=== PATIENT | male | born 1965 | race Hispanic/Latino ===

== ENCOUNTER 2017-03-16 02:24 | Inpatient (IN) | payer MEDICAID, OTHER ==
[2017-03-16 04:57] LABS: Calcium 9.9 mg/dL (8.4-10.2); Chloride 96.6 mmol/L (98-107)
[2017-03-16 05:00] LABS: Hematocrit 33.1 % (35.5-45.6); Hemoglobin 10.7 gm/dl (11.8-15.2); Mean Corpuscular HGB Conc 32 % (32-34); Mean Corpuscular Hemoglobin 34 pg (28-32); Mean Corpuscular Volume 105 fl (84-94); Platelet Count 762 K/mm3 (140-440); Red Blood Count 3.15 M/mm3 (3.65-5.03); Red Cell Distribution Width 15.4 % (13.2-15.2); White Blood Count 13.5 K/mm3 (4.5-11.0)
[2017-03-16 05:01] LABS: Potassium 5.1 mmol/L (3.6-5.0)
[2017-03-16 06:57] LABS: Basophils % (Manual) 0 % (0.0-1.8); Blastocytes % (Manual) 0 %
[2017-03-16 06:59] LABS: Diff Status Complete; Platelet Estimate Appears Increased; RBC Morphology Normal
--- NOTE | 2017-03-16 08:05 | Emergency Department Report ---
ED Psych HPI - General Chief Complaint: Psych Stated Complaint: MARISSA HUNT Time Seen by Provider: 03/16/17 07:47 Source: patient Mode of arrival: Ambulatory Limitations: No Limitations - History of Present Illness Initial Comments: 51-year-old male presents to the emergency department complaining of bugs in his ears. Patient states for the past 2 weeks he has been having constant buzzing in his right ear and static in his left ear. He reports hearing constant music, but states it is the same songs over and over again. Patient states he has been unable to sleep at night due to the sounds in his ears. He also reports hearing voices stating that they are going to "get him". He denies suicidal or homicidal thoughts. There are no other complaints. -: Gradual, week(s) (2) Associated Psychiatric Symptoms: auditory hallucinations, delusions History of same: No Quality: constant Improves With: none Worsens With: none Associated Symptoms: denies other symptoms Treatments Prior to Arrival: none - Related Data Home Medications Medication Instructions Recorded Confirmed Last Taken No Known Home Medications [No 03/16/17 03/16/17 Unknown Reported Home Medications] Allergies Allergy/AdvReac Type Severity Reaction Status Date / Time No Known Allergies Allergy Unverified 03/16/17 03:52 ED Review of Systems ROS: Stated complaint: MARISSA EVAL Other details as noted in HPI Comment: All other systems reviewed and negative Psychiatric: auditory hallucinations. denies: visual hallucinations, homicidal thoughts, suicidal thoughts ED Past Medical Hx - Past Medical History Previous Medical History?: Yes Additional medical history: pancreatitis - Surgical History Past Surgical History?: No - Family History Family history: no significant - Social History Smoking Status: Current Every Day Smoker Substance Use Type: Alcohol - Medications Home Medications: Home Medications Medication Instructions Recorded Confirmed Last Taken Type No Known Home Medications [No 03/16/17 03/16/17 Unknown History Reported Home Medications] ED Physical Exam - General Limitations: No Limitations General appearance: alert, in no apparent distress - Head Head exam: Present: atraumatic, normocephalic - Eye Eye exam: Present: normal appearance, PERRL, EOMI - ENT ENT exam: Present: normal exam, normal orophraynx, mucous membranes moist, TM's normal bilaterally - Neck Neck exam: Present: normal inspection, full ROM. Absent: tenderness - Respiratory Respiratory exam: Present: normal lung sounds bilaterally. Absent: respiratory distress - Cardiovascular Cardiovascular Exam: Present: regular rate, normal rhythm, normal heart sounds - GI/Abdominal GI/Abdominal exam: Present: soft, normal bowel sounds. Absent: distended, tenderness - Extremities Exam Extremities exam: Present: normal inspection, full ROM. Absent: tenderness - Back Exam Back exam: Present: normal inspection, full ROM. Absent: tenderness - Neurological Exam Neurological exam: Present: alert, oriented X3. Absent: motor sensory deficit - Psychiatric Psychiatric exam: Present: anxious, manic. Absent: homicidal ideation, suicidal ideation - Skin Skin exam: Present: warm, dry, intact ED Course Vital Signs 03/16/17 03/16/17 03:52 09:12 Temperature 98.3 F 98.5 F Pulse Rate 104 H 98 H Respiratory 20 16 Rate Blood Pressure 133/87 116/76 [Left] O2 Sat by Pulse 100 100 Oximetry - Reevaluation(s) Reevaluation #1: 03/16/17 11:59 Patient has been medically cleared. Form 1013 has been signed and placed in patient's chart. Patient is waiting mental [facility] placement ED Medical Decision Making - Lab Data Result diagrams: 03/16/17 04:05 03/16/17 04:05 - Radiology Data Radiology results: report reviewed, image reviewed CT of the head shows no acute intracranial abnormality. - Differential Diagnosis psychosis, intracranial lesion Critical care attestation.: If time is entered above; I have spent that time in minutes in the direct care of this critically ill patient, excluding procedure time. ED Disposition Clinical Impression: Psychosis Qualifiers: Psychosis type: unspecified psychosis type Qualified Code(s): F29 - Unspecified psychosis not due to a substance or known physiological condition Disposition: DC/TX PSY HOSP/PSY UNIT Is pt being admited?: No Condition: Stable Time of Disposition: 12:00
[2017-03-16 08:13] LABS: Urine Drugs of Abuse Note Disclamer
[2017-03-16 08:27] LABS: Bacteria,Urine 1+ /HPF (Negative); Bilirubin,Urine NEG (Negative); Blood,Urine NEG (Negative); Ketones,Urine TR mg/dL (Negative); Leukocyte Esterase,Urine TR (Negative); Mucus,Urine FEW /HPF; Nitrite,Urine NEG (Negative); Protein,Urine <15 mg/dL mg/dL (Negative); RBC,Urine < 1.0 /HPF (0.0-6.0); Urobilinogen,Urine < 2.0 mg/dL (<2.0)
--- NOTE | 2017-03-16 08:34 | Cat Scan Report ---
CT HEAD WITHOUT CONTRAST: HISTORY: New onset hallucinations, psychosis. Serial contiguous axial images were obtained through the cranium. Intravenous contrast material was not administered. The ventricles are normal in size and appearance. There is no mass effect or midline shift. No areas of abnormally increased or decreased attenuation are seen. No mass lesion is seen. The mastoid air cells and visualized portions of the sinuses are normal. IMPRESSION: Cranial CT scan within normal limits.
--- NOTE | 2017-03-16 15:36 | Consultation ---
History of Present Illness - Reason for Consult Consult date: 03/16/17 Reason for consult: Mental Health Evaluation Requesting physician: CATALINO JACOME - Chief Complaint Chief complaint: "There are bugs in my ear" - History of Present Psychiatric Illness 51-year-old white male presents to the emergency department complaining of bugs in his ears. Today patient is elated and calm with a non linear thought process. He reports bugs in both his ears, also hearing music playing intermittently. He states that a "molly" is turning up the volume in his ears currently. He stated that the bugs and the loud music prevents him from sleeping. He stated he got 1 hours of sleep last night. Patient was able to tell me that his father called the police on him at their home prior to his admission to [facility]. Patient states that they got into a argument about the bugs in his ear. Patient resides with his parents in [place], [place]. He denies symptoms of depression or a poor appetite. He denies any psy hx, SI/HI's, and VH's. Patient is a poor historian of past psy hx. Medications and Allergies Allergies Allergy/AdvReac Type Severity Reaction Status Date / Time No Known Allergies Allergy Unverified 03/16/17 03:52 Home Medications Medication Instructions Recorded Confirmed Last Taken Type No Known Home Medications [No 03/16/17 03/16/17 Unknown History Reported Home Medications] Past psychiatric history - Past Medical History Past Medical History: No medical history Past Surgical History: No surgical history - past Psychiatric treatment and history psychiatric treatment history: He denies any psy hx. He denies a fam psy hx. - Social History Social history: lives with family ([employer] graduate, unemployed) Mental Status Exam - Vital signs Last Vital Signs Temp 98.5 F 03/16/17 09:12 Pulse 98 H 03/16/17 09:12 Resp 16 03/16/17 09:12 BP 116/76 03/16/17 09:12 Pulse Ox 100 03/16/17 09:12 - Exam Narrative exam: ROS (+) psychosis, (+) delusional, (-) depression MSE: Appearance: Disheveled, cooperative Behavior: good eye contact Speech: regular rate and tone Mood: "I am fine" Affect: euphoric Thought Process: focus, fixed, non linear Thought Content: denies SI/HI's, +AH, -VH Cognition: A/O x3 Insight: poor Judgment: poor Results Result Diagrams: 03/16/17 04:05 03/16/17 04:05 Abnormal lab results 03/16/17 03/16/17 Range/Units 04:05 04:05 WBC 13.5 H (4.5-11.0) K/mm3 RBC 3.15 L (3.65-5.03) M/mm3 Hgb 10.7 L (11.8-15.2) gm/dl Hct 33.1 L (35.5-45.6) % MCV 105 H (84-94) fl MCH 34 H (28-32) pg RDW 15.4 H (13.2-15.2) % Plt Count 762 H (140-440) K/mm3 Seg Neuts % (Manual) 84.0 H (40.0-70.0) % Lymphocytes % (Manual) 5.0 L (13.4-35.0) % Monocytes % (Manual) 8.0 H (0.0-7.3) % Seg Neutrophils # Man 11.3 H (1.8-7.7) K/mm3 Lymphocytes # (Manual) 0.7 L (1.2-5.4) K/mm3 Monocytes # (Manual) 1.1 H (0.0-0.8) K/mm3 Sodium 134 L (137-145) mmol/L Potassium 5.1 H (3.6-5.0) mmol/L Chloride 96.6 L (98-107) mmol/L Carbon Dioxide 17 L (22-30) mmol/L BUN 24 H (9-20) mg/dL Creatinine 1.6 H (0.8-1.5) mg/dL All other labs normal. Assessment and Plan Assessment and plan: Impression: Psychosis NOS. 51-year-old white male presents to the emergency department complaining of bugs in his ears. Today patient is elated and calm with a non linear thought process. He reports bugs in both his ears, also hearing music playing intermittently. He states that a "molly" is turning up the volume in his ears currently. He stated that the bugs and the loud music prevents him from sleeping. He denies SI/HI's and VH's at this time. Recommendation/Plan: Continue 1013 with possible placement in a inpatient psy services. Start Zyprexa 5 mg PO HS for psychosis and benadryl 25 mg PO HS for sleep. Gather more collateral from parents.
--- NOTE | 2017-03-16 17:43 | Event Note ---
Date: 03/16/17 Discussed metabolic side effects with patient reference Zyprexa.
[2017-03-16] MEDS: BENADRYL PO SCH (22:27)
--- NOTE | 2017-03-17 09:56 | Progress Note ---
Subjective - Reason for Consult Consult date: 03/17/17 Reason for consult: Psychiatry Follow-up - Chief Complaint Chief complaint: "It's the static today" 51-year-old white male presents to the emergency department complaining of bugs in his ears. Today patient calm, cooperative with a non linear thought process. He reports the bugs are gone, it's just the "static" in my ears now. Patient stated, the "molly" must have turned off the music. He could not tell me who this "molly" is. Patient stated that he got much more sleep last night. He feels that the "static" in his ears may go away soon. He states this is all new to him. He denies SI/HI's and VH's. I observed patient eating a snack during our discussion. Mental Status Exam - Vital signs Last Vital Signs Temp 98.5 F 03/16/17 09:12 Pulse 88 03/17/17 08:16 Resp 18 03/17/17 08:16 BP 120/72 03/17/17 08:16 Pulse Ox 100 03/17/17 08:16 - Exam Narrative exam: MSE: Appearance: calm, cooperative Behavior: good eye contact Speech: regular rate and tone Mood: "I am good" Affect: euphoric Thought Process: focus, fixed, non linear Thought Content: denies SI/HI's, +AH, -VH Cognition: A/O x3 Insight: poor Judgment: poor Assessment and Plan mpression: Psychosis NOS. 51-year-old white male presents to the emergency department complaining of bugs in his ears. Today patient calm, cooperative with a non linear thought process. He reports the bugs are gone, it's just the "static" in my ears now. Patient stated, the "molly" must have turned off the music. He could not tell me who this "molly" is. Patient stated that he got much more sleep last night. He feels that the "static" in his ears may go away soon. He denies SI/HI's and VH's at this time. Recommendation/Plan: Continue 1013 with possible placement in a inpatient psy services. Continue Zyprexa 5 mg PO HS for psychosis and benadryl 25 mg PO HS for sleep. Gather more collateral information from parents. I asked his assigned RN to get me his parent's number if possible.
[2017-03-17] MEDS ORDERED: MORPHINE IV ONE (13:03)
[2017-03-17] MEDS ORDERED: ZOFRAN IV ONE (13:03)
--- NOTE | 2017-03-17 13:05 | Emergency Department Report ---
Blank Doc - Documentation Documentation: Informed by nursing the patient is complaining of abdominal pain. Abdomen: Patient is tender to palpation diffusely but greatest in the epigastric region. Normoactive bowel sounds. Will add LFTs, amylase and lipase and order a CT abdomen and pelvis with IV contrast further evaluate abdominal pain. Analgesia ordered 14:43 CT abdomen and pelvis (read by radiologist) (-findings suggestive of acute pancreatitis. Please correlate with the patient's clinical presentation. Duodenitis or peptic ulcer disease could also be considered. Bilateral nephrolithiasis, nonobstructing. The patient's amylase came back elevated at 2550 and lipase elevated at 1844. Will admit the patient to the hospital for acute pancreatitis. 14:[address] Che lazaro
[2017-03-17 14:01] LABS: Alanine Aminotransferase 12 units/L (7-56); Albumin 3.5 g/dL (3.9-5); Albumin/Globulin Ratio 0.8 %; Alkaline Phosphatase 190 units/L (35-129); Bilirubin,Total 0.2 mg/dL (0.1-1.2); Total Protein 7.8 g/dL (6.3-8.2)
[2017-03-17 14:08] LABS: Bilirubin,Direct < 0.2 mg/dL (0-0.2)
[2017-03-17 14:10] LABS: Amylase 2550 units/L (27-131)
--- NOTE | 2017-03-17 14:32 | Cat Scan Report ---
CT SCAN OF THE ABDOMEN AND PELVIS WITH CONTRAST: HISTORY: Epigastric abdominal pain. TECHNIQUE: Helical CT in 1.25mm intervals following IV contrast. Sagittal and coronal reconstructions. FINDINGS: Moderate inflammatory fat stranding and small fluid is identified within the base of the mesentery. This may arise from an inflamed pancreas. The pancreatic head appears mildly edematous with prominent ducts. There is a calcified lesion within or adjacent to the pancreatic tail measuring 2.7 cm. This may represent thrombosed and calcified splenic artery aneurysm The liver, spleen, and biliary system are unremarkable. No calcified gallstones are identified on CT. Bilateral nonobstructing renal stones are identified. No evidence for ureteral stones or hydronephrosis. The adrenal glands are normal. There is no intestinal obstruction or ascites. The appendix is not confidently identified. The abdominal aorta is normal. There is no evidence for bowel obstruction no oral contrast was administered. There may be mild thickening of the duodenum could be reactive or related to duodenitis. There is no evidence of peritoneal air. There is no evidence of any abnormal masses or fluid collections within the pelvis. No bulky adenopathy is identified. Borderline reactive lymph nodes are noted in the mesentery. The bladder is normal. IMPRESSION: Findings suggestive of acute pancreatitis. Please correlate with the patient's clinical presentation. Duodenitis or peptic ulcer disease could also be considered. Bilateral nephrolithiasis, nonobstructing.
[2017-03-17] MEDS ORDERED: NACL 0.9% 1000 ML 1,000 ML IV ONE (14:39)
[2017-03-17] MEDS ORDERED: SUBLIMAZE IV PRN (14:40)
[2017-03-17 14:42] LABS: Lipase 1844 units/L (13-60)
--- NOTE | 2017-03-17 15:14 | Admit Criteria Form ---
Admission Criteria Documentation: PANCREATITIS Clinical Indications for Admission to Inpatient Care (Place 'X' for any and all applicable criteria): Admission is indicated for 1 or more of the following (1)(2)(3)(4): [X ]I. Acute pancreatitis[A] as indicated by 2 or MORE of the following: [X ]a) Abdominal pain (eg, epigastric, left upper quadrant) [X ]b) Serum amylase or serum lipase greater than 3 times the upper limit of normal [X]c) Characteristic findings from abdominal imaging (eg, pancreatic inflammation, pancreatic necrosis, peripancreatic fluid collection)[B] [ ]II. Pancreatitis (acute or chronic ) requiring inpatient care as indicated by 1 or more of the following [ ]a) Inability to maintain oral hydration Hypoxemia [ ]b) Evidence of infection (eg, fever, peripancreatic abscess) [ ]c) Severe pain requiring acute inpatient management [ ]d) Hemodynamic instability [ ]e) Hypoxemia [ ]f) Acute renal failure [ ]g) Severe electrolyte abnormalities Extended stay beyond goal length of stay may be needed for (1)(11) [ ]a) Severe acute pancreatitis (10)(19) [ ]b) Persistent symptoms, ascites, or pleural effusion [ ]c) Abdominal compartment syndrome (10) [ ]d) Late complications [ ]e) Gallstones in gallbladder [ ]f) Acute renal failure (27) The original [employer] content created by [employer] has been revised. The portions of the content which have been revised are identified through the use of italic text or in bold,and [facility] has neither reviewed nor approved the modified material.All other unmodified content is copyright [employer]. Please see references footnoted in the original [employer] edition 2016 Admission Criteria Met: Yes
[2017-03-17] MEDS ORDERED: TYLENOL PO PRN (18:52)
[2017-03-17] MEDS ORDERED: MILK OF MAGNESIA PO PRN (18:52)
[2017-03-17] MEDS ORDERED: DULCOLAX PR PRN (18:52)
--- NOTE | 2017-03-17 19:07 | Event Note ---
Date: 03/17/17 See H/p in reports Acute pancreatitis Psychosis
[2017-03-17] MEDS: DILAUDID IV PRN ×2 (19:57→23:04)
[2017-03-17] MEDS: D5NS 1,000 ML IV SCH ×2 (20:02→20:09)
[2017-03-17] MEDS: BENADRYL PO SCH (21:54)
[2017-03-17] MEDS: PEPCID PO SCH (21:54)
--- NOTE | 2017-03-18 02:00 | History and Physical Report ---
History of Present Illness Date of examination: 03/17/17 Date of admission: 03/17/17 14:45 Chief complaint: Acute Abd pain while in ER History of present illness: 52 y/o male was being evaluated for psychosis .Was feeling a bug and static in his ear. per psych eval- (51-year-old white male presents to the emergency department complaining of bugs in his ears. Today patient calm, cooperative with a non linear thought process. He reports the bugs are gone, it's just the "static" in my ears now. Patient stated, the "molly" must have turned off the music. He could not tell me who this "molly" is. Patient stated that he got much more sleep last night. He feels that the "static" in his ears may go away soon. He states this is all new to him. He denies SI/HI's and VH's. I observed patient eating a snack during our discussion.) While in Er b/c of abd pain w/u was initiated and was found to have Acute pncreatitis -hence admission to hospital.Pain 10 /10 and very sharp pain.Localized to Epigastric region.No exacerbating or relieving factors. Past History Past Medical History: No medical history, other (Psychosis) Past Surgical History: No surgical history Social history: lives with family ( graduate, unemployed), smoking Family history: no significant family history Medications and Allergies Allergies Allergy/AdvReac Type Severity Reaction Status Date / Time No Known Allergies Allergy Verified 03/16/17 17:44 Home Medications Medication Instructions Recorded Confirmed Last Taken Type No Known Home Medications [No 03/16/17 03/16/17 Unknown History Reported Home Medications] Active Meds: Active Medications Acetaminophen (Tylenol) 650 mg PO Q4H PRN PRN Reason: Pain MILD(1-3)/Fever >100.5/JERNIGAN Bisacodyl (Dulcolax) 10 mg HI QDAY PRN PRN Reason: Constipation unrelieved by MOM Diphenhydramine HCl (Benadryl) 25 mg PO [facility] Last Admin: 03/17/17 21:54 Dose: 25 mg Famotidine (Pepcid) 20 mg PO BID [facility] Last Admin: 03/17/17 21:54 Dose: 20 mg Fentanyl (Sublimaze) 100 mcg IV ONCE PRN PRN Reason: Pain Hydromorphone HCl (Dilaudid) 1 mg IV Q3H PRN PRN Reason: Pain , Severe (7-10) Last Admin: 03/17/17 23:04 Dose: 1 mg Dextrose/Sodium Chloride (D5ns) 1,000 mls @ 100 mls/hr IV DIRECT [facility] Last Admin: 03/17/17 20:09 Dose: 100 mls/hr Magnesium Hydroxide (Milk Of Magnesia) 30 ml PO Q4H PRN PRN Reason: Constipation Olanzapine (Zyprexa) 5 mg PO HS [facility] Last Admin: 03/17/17 21:54 Dose: 5 mg Ondansetron HCl (Zofran) 4 mg IV Q3H PRN PRN Reason: N/V unrelieved by Reglan Review of Systems All systems: negative Constitutional: no weight loss, no weight gain, no fever, no chills, no sweats, no night sweats Ears, nose, mouth and throat: tinnitis, no hoarseness, no sore throat Cardiovascular: no chest pain, no orthopnea, no palpitations, no rapid/ irregular heart beat, no edema, no syncope, no lightheadedness, no shortness of breath Respiratory: no cough, no cough with sputum, no excessive sputum, no hemoptysis , no shortness of breath, no dyspnea on exertion Gastrointestinal: abdominal pain, nausea Genitourinary Male: no dysuria, no hematuria, no flank pain, no discharge, no urinary frequency, no urinary hesitancy, no nocturia, no incontinence Rectal: no bleeding Musculoskeletal: no neck stiffness, no neck pain Integumentary: no rash, no pruritis, no redness, no sores, no wounds, no jaundice, no boils, no blisters Neurological: no seizures, no syncope Psychiatric: anxiety, depression Endocrine: no cold intolerance, no heat intolerance, no polyphagia, no excessive thirst, no polydipsia, no polyuria, no nocturia, no excessive sweating , no flushing Hematologic/Lymphatic: no easy bruising, no easy bleeding, no lymphadenopathy, no lymphedema Allergic/Immunologic: no urticaria, no allergic rhinitis, no wheezing Exam - Constitutional Vitals: Temp Pulse Resp BP Pulse Ox 98.1 F 85 20 144/87 100 03/17/17 22:41 03/17/17 22:41 03/17/17 23:04 03/17/17 22:41 03/17/17 19:00 General appearance: Present: no acute distress, well-nourished - EENT Eyes: Present: PERRL ENT: hearing intact, clear oral mucosa - Neck Neck: Present: supple, normal ROM - Respiratory Respiratory effort: normal Respiratory: bilateral: CTA - Cardiovascular Rhythm: regular Heart Sounds: Present: S1 & S2. Absent: rub, click - Extremities Extremities: no ischemia, pulses intact, pulses symmetrical, No edema Peripheral Pulses: within normal limits - Abdominal General gastrointestinal: Present: tender (Guarding present), non-distended, normal bowel sounds Male genitourinary: Present: normal - Integumentary Integumentary: Present: clear, warm, dry - Musculoskeletal Musculoskeletal: gait normal, strength equal bilaterally - Psychiatric Psychiatric: appropriate mood/affect, intact judgment & insight - Neurologic Neurologic: CNII-XII intact, moves all extremities Results - Labs CBC & Chem 7: 03/16/17 04:05 03/16/17 04:05 Labs: Amylase 2550 Lipase 1844 Laboratory Last Values WBC 13.5 K/mm3 (4.5-11.0) H 03/16/17 04:05 RBC 3.15 M/mm3 (3.65-5.03) L 03/16/17 04:05 Hgb 10.7 gm/dl (11.8-15.2) L 03/16/17 04:05 Hct 33.1 % (35.5-45.6) L 03/16/17 04:05 MCV 105 fl (84-94) H 03/16/17 04:05 MCH 34 pg (28-32) H 03/16/17 04:05 MCHC 32 % (32-34) 03/16/17 04:05 RDW 15.4 % (13.2-15.2) H 03/16/17 04:05 Plt Count 762 K/mm3 (140-440) H 03/16/17 04:05 Lymph % (Auto) Department Secretary 03/16/17 04:05 [place] % (Auto) Department Secretary 03/16/17 04:05 Eos % (Auto) Department Secretary 03/16/17 04:05 Baso % (Auto) Department Secretary 03/16/17 04:05 Lymph # Department Secretary 03/16/17 04:05 [place] # Department Secretary 03/16/17 04:05 Eos # Department Secretary 03/16/17 04:05 Baso # Department Secretary 03/16/17 04:05 Add Manual Diff Complete 03/16/17 04:05 Total Counted 100 03/16/17 04:05 Seg Neutrophils % Department Secretary 03/16/17 04:05 Seg Neuts % (Manual) 84.0 % (40.0-70.0) H 03/16/17 04:05 Band Neutrophils % 0 % 03/16/17 04:05 Lymphocytes % (Manual) 5.0 % (13.4-35.0) L 03/16/17 04:05 Reactive Lymphs % (Man) 0 % 03/16/17 04:05 Monocytes % (Manual) 8.0 % (0.0-7.3) H 03/16/17 04:05 Eosinophils % (Manual) 3.0 % (0.0-4.3) 03/16/17 04:05 Basophils % (Manual) 0 % (0.0-1.8) 03/16/17 04:05 Metamyelocytes % 0 % 03/16/17 04:05 Myelocytes % 0 % 03/16/17 04:05 Promyelocytes % 0 % 03/16/17 04:05 Blast Cells % 0 % 03/16/17 04:05 Nucleated RBC % Not Reportable 03/16/17 04:05 Seg Neutrophils # Department Secretary 03/16/17 04:05 Seg Neutrophils # Man 11.3 K/mm3 (1.8-7.7) H 03/16/17 04:05 Band Neutrophils # 0.0 K/mm3 03/16/17 04:05 Lymphocytes # (Manual) 0.7 K/mm3 (1.2-5.4) L 03/16/17 04:05 Abs React Lymphs (Man) 0.0 K/mm3 03/16/17 04:05 Monocytes # (Manual) 1.1 K/mm3 (0.0-0.8) H 03/16/17 04:05 Eosinophils # (Manual) 0.4 K/mm3 (0.0-0.4) 03/16/17 04:05 Basophils # (Manual) 0.0 K/mm3 (0.0-0.1) 03/16/17 04:05 Metamyelocytes # 0.0 K/mm3 03/16/17 04:05 Myelocytes # 0.0 K/mm3 03/16/17 04:05 Promyelocytes # 0.0 K/mm3 03/16/17 04:05 Blast Cells # 0.0 K/mm3 03/16/17 04:05 WBC Morphology Not Reportable 03/16/17 04:05 Hypersegmented Neuts Not Reportable 03/16/17 04:05 Hyposegmented Neuts Not Reportable 03/16/17 04:05 Hypogranular Neuts Not Reportable 03/16/17 04:05 Smudge Cells Not Reportable 03/16/17 04:05 Toxic Granulation Not Reportable 03/16/17 04:05 Toxic Vacuolation Not Reportable 03/16/17 04:05 Dohle Bodies Not Reportable 03/16/17 04:05 Pelger-Huet Anomaly Not Reportable 03/16/17 04:05 Kev Rods Not Reportable 03/16/17 04:05 Platelet Estimate Appears increased 03/16/17 04:05 Clumped Platelets Not Reportable 03/16/17 04:05 Plt Clumps, EDTA Not Reportable 03/16/17 04:05 Large Platelets Not Reportable 03/16/17 04:05 Giant Platelets Not Reportable 03/16/17 04:05 Platelet Satelliting Not Reportable 03/16/17 04:05 Plt Morphology Comment Not Reportable 03/16/17 04:05 RBC Morphology Normal 03/16/17 04:05 Dimorphic RBCs Not Reportable 03/16/17 04:05 Polychromasia Not Reportable 03/16/17 04:05 Hypochromasia Not Reportable 03/16/17 04:05 Poikilocytosis Not Reportable 03/16/17 04:05 Anisocytosis Not Reportable 03/16/17 04:05 Microcytosis Not Reportable 03/16/17 04:05 Macrocytosis Not Reportable 03/16/17 04:05 Spherocytes Not Reportable 03/16/17 04:05 Pappenheimer Bodies Not Reportable 03/16/17 04:05 Sickle Cells Not Reportable 03/16/17 04:05 Target Cells Not Reportable 03/16/17 04:05 Tear Drop Cells Not Reportable 03/16/17 04:05 Ovalocytes Not Reportable 03/16/17 04:05 Helmet Cells Not Reportable 03/16/17 04:05 [place] Bodies Not Reportable 03/16/17 04:05 [place] Rings Not Reportable 03/16/17 04:05 [place] Cells Not Reportable 03/16/17 04:05 Bite Cells Not Reportable 03/16/17 04:05 Crenated Cell Not Reportable 03/16/17 04:05 Elliptocytes Not Reportable 03/16/17 04:05 Acanthocytes (Spur) Not Reportable 03/16/17 04:05 Rouleaux Not Reportable 03/16/17 04:05 Hemoglobin C Crystals Not Reportable 03/16/17 04:05 Schistocytes Not Reportable 03/16/17 04:05 Malaria parasites Not Reportable 03/16/17 04:05 [place] Bodies Not Reportable 03/16/17 04:05 Hem Pathologist Commnt No 03/16/17 04:05 Sodium 134 mmol/L (137-145) L 03/16/17 04:05 Potassium 5.1 mmol/L (3.6-5.0) H 03/16/17 04:05 Chloride 96.6 mmol/L (98-107) L 03/16/17 04:05 Carbon Dioxide 17 mmol/L (22-30) L 03/16/17 04:05 Anion Gap 26 mmol/L 03/16/17 04:05 BUN 24 mg/dL (9-20) H 03/16/17 04:05 Creatinine 1.6 mg/dL (0.8-1.5) H 03/16/17 04:05 Estimated GFR 46 ml/min 03/16/17 04:05 BUN/Creatinine Ratio 15.00 % 03/16/17 04:05 Glucose 92 mg/dL (75-100) 03/16/17 04:05 Calcium 9.9 mg/dL (8.4-10.2) 03/16/17 04:05 Total Bilirubin 0.2 mg/dL (0.1-1.2) 03/17/17 13:02 Direct Bilirubin < 0.2 mg/dL (0-0.2) 03/17/17 13:02 AST 29 units/L (5-40) 03/17/17 13:02 ALT 12 units/L (7-56) 03/17/17 13:02 Alkaline Phosphatase 190 units/L (35-129) H 03/17/17 13:02 Total Protein 7.8 g/dL (6.3-8.2) 03/17/17 13:02 Albumin 3.5 g/dL (3.9-5) L 03/17/17 13:02 Albumin/Globulin Ratio 0.8 % 03/17/17 13:02 Amylase 2550 units/L (27-131) H 03/17/17 13:02 Lipase 1844 units/L (13-60) H 03/17/17 13:02 Urine Color Yellow (Yellow) 03/16/17 08:10 Urine Turbidity Clear (Clear) 03/16/17 08:10 Urine pH 5.0 (5.0-7.0) 03/16/17 08:10 Ur Specific [place] 1.015 (1.003-1.030) 03/16/17 08:10 Urine Protein <15 mg/dl mg/dL (Negative) 03/16/17 08:10 Urine Glucose (UA) Neg mg/dL (Negative) 03/16/17 08:10 Urine Ketones Tr mg/dL (Negative) 03/16/17 08:10 Urine Blood Neg (Negative) 03/16/17 08:10 Urine Nitrite Neg (Negative) 03/16/17 08:10 Urine Bilirubin Neg (Negative) 03/16/17 08:10 Urine Urobilinogen < 2.0 mg/dL (<2.0) 03/16/17 08:10 Ur Leukocyte Esterase Tr (Negative) 03/16/17 08:10 Urine WBC (Auto) 2.0 /HPF (0.0-6.0) 03/16/17 08:10 Urine RBC (Auto) < 1.0 /HPF (0.0-6.0) 03/16/17 08:10 Urine Bacteria (Auto) 1+ /HPF (Negative) 03/16/17 08:10 Urine Mucus Few /HPF 03/16/17 08:10 Urine Opiates Screen Presumptive negative 03/16/17 08:10 Urine Methadone Screen Presumptive negative 03/16/17 08:10 Ur Barbiturates Screen Presumptive negative 03/16/17 08:10 Ur Phencyclidine Scrn Presumptive negative 03/16/17 08:10 Ur Amphetamines Screen Presumptive negative 03/16/17 08:10 U Benzodiazepines Scrn Presumptive negative 03/16/17 08:10 Urine Cocaine Screen Presumptive negative 03/16/17 08:10 U Marijuana (THC) Screen Presumptive negative 03/16/17 08:10 Drugs of Abuse Note Disclamer 03/16/17 08:10 Plasma/Serum Alcohol < 0.01 gm% (0-0.07) 03/16/17 04:05 Liver Function 03/17/17 Range/Units 13:02 Total Bilirubin 0.2 (0.1-1.2) mg/dL Direct Bilirubin < 0.2 (0-0.2) mg/dL AST 29 (5-40) units/L ALT 12 (7-56) units/L Alkaline Phosphatase 190 H (35-129) units/L Albumin 3.5 L (3.9-5) g/dL - Imaging and Cardiology CT scan - abdomen: report reviewed (C/w Acute pancreatitis) CT Scan - head: report reviewed (Nl) Assessment and Plan Advance Directives: Yes (Full code) VTE prophylaxis?: Chemical Plan of care discussed with patient/family: Yes - Patient Problems (1) Pancreatitis, acute Current Visit: Yes Status: Acute Qualifiers: Pancreatitis type: unspecified pancreatitis type Acute pancreatitis complication: A Plan to address problem: Will keep him NPO IV fluids and pain management with IV Dilaudid and IV Zofran for Nausea/Vomiting. Dietitian consult if TPN is necessary.. (2) Psychosis Current Visit: Yes Status: Acute Qualifiers: Psychosis type: unspecified psychosis type Schizoaffective disorder type: S Schizophrenia type: S Qualified Code(s): F29 - Unspecified psychosis not due to a substance or known physiological condition Plan to address problem: Per Mental Health. (3) Anemia Current Visit: Yes Status: Chronic Qualifiers: Anemia type: A Iron deficiency anemia type: I Vitamin B12 deficiency anemia type: V Folate deficiency anemia type: F Bone marrow failure anemia type: B Hemolytic anemia type: H Other causes of anemia: nutritional, other megaloblastic Qualified Code(s): D53.1 - Other megaloblastic anemias, not elsewhere classified Plan to address problem: Probably sec to ETOH and nutritional def MCH high B12/Folic acid levels ordered (4) EtOH dependence Current Visit: Yes Status: Chronic Qualifiers: Substance use status: uncomplicated Complication of substance-induced condition: C Qualified Code(s): F10.20 - Alcohol dependence, uncomplicated Plan to address problem: CIWA protocol initiated (5) DVT prophylaxis Current Visit: Yes Status: Acute Plan to address problem: On Subq Lovenox
[2017-03-18] MEDS ORDERED: HALDOL IV PRN (02:21)
[2017-03-18] MEDS ORDERED: ATIVAN IV PRN ×3 (02:21)
[2017-03-18] MEDS ORDERED: VITAMIN B-1 100 MG, FOLVITE 1 MG, INFUVITE 10 ML in NACL 0.9% 1000 ML 1,000 ML IV ONE (02:25)
[2017-03-18] MEDS: DILAUDID IV PRN ×6 (02:51→20:46)
[2017-03-18 03:16] LABS: Basophils % (Auto) 0.5 % (0.0-1.8); Eosinophils % (Auto) 4.1 % (0.0-4.3); Hematocrit 34.1 % (35.5-45.6); Mean Corpuscular HGB Conc 32 % (32-34); Mean Corpuscular Hemoglobin 33 pg (28-32); Mean Corpuscular Volume 104 fl (84-94); Platelet Count 736 K/mm3 (140-440); Red Blood Count 3.28 M/mm3 (3.65-5.03); Red Cell Distribution Width 15.2 % (13.2-15.2); White Blood Count 9.8 K/mm3 (4.5-11.0)
[2017-03-18 03:23] LABS: Alanine Aminotransferase 10 units/L (7-56); Albumin 3.3 g/dL (3.9-5); Albumin/Globulin Ratio 0.9 %; Alkaline Phosphatase 166 units/L (35-129); BUN/Creatinine Ratio 9.09; Bilirubin,Total 0.2 mg/dL (0.1-1.2); Blood Urea Nitrogen 10 mg/dL (9-20); Calcium 8.2 mg/dL (8.4-10.2); Carbon Dioxide 25 mmol/L (22-30); Chloride 100.3 mmol/L (98-107); Glucose 138 mg/dL (75-100); Potassium 3.8 mmol/L (3.6-5.0); Sodium 138 mmol/L (137-145); Total Protein 7.1 g/dL (6.3-8.2)
[2017-03-18 03:24] LABS: Anion Gap 17 mmol/L
[2017-03-18 03:32] LABS: Amylase 1712 units/L (27-131)
--- NOTE | 2017-03-18 08:21 | Progress Note ---
Assessment and Plan Assessment and plan: 52 y/o male was being evaluated for psychosis .Was feeling a bug and static in his ear. per psych eval-(51-year-old white male presents to the emergency department complaining of bugs in his ears. Today patient calm, cooperative with a non linear thought process. He reports the bugs are gone, it' s just the "static" in my ears now. Patient stated, the "molly" must have turned off the music. He could not tell me who this "molly" is. Patient stated that he got much more sleep last night. He feels that the "static" in his ears may go away soon. He states this is all new to him. He denies SI/HI's and VH's. I observed patient eating a snack during our discussion.) While in Er b/c of abd pain w/u was initiated and was found to have Acute pncreatitis -hence admission to hospital.Pain 10 /10 and very sharp pain.Localized to Epigastric region.No exacerbating or relieving factors. 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 On antibiotics * Psychiatrist following * If no improvement in next 1-2 days will consult dietary for feeding. * Continue I:1 sitter * Follow labs B12, folic acid. Iron studies. * Per vivian continue 1013 with possible placement in a inpatient psy services. Continue Zyprexa 5 mg PO HS for psychosis and benadryl 25 mg PO HS for sleep. Gather more collateral information from parents. * Extensive counseling on alcohol cessation provided for 15 minutes with supportive formation. * Continue CIWA protocol * DVT and GI prophylaxis * No family present at this time. History Interval history: Patient seen and examined today, remains disorganized in thought, still with some abdominal pain but reports feeling hungry. No nausea, vomiting or diarrhea , No other adverse event by nursing staff Hospitalist Physical - Constitutional Vitals: Temp Pulse Resp BP Pulse Ox 97.1 F L 99 H 20 165/89 97 03/18/17 07:00 03/18/17 07:00 03/18/17 07:00 03/18/17 07:00 03/18/17 07:00 General appearance: Present: no acute distress, well-nourished Results - Labs CBC & Chem 7: 03/18/17 02:40 03/18/17 02:40 Labs: Laboratory Last Values WBC 9.8 K/mm3 (4.5-11.0) 03/18/17 02:40 RBC 3.28 M/mm3 (3.65-5.03) L 03/18/17 02:40 Hgb 11.0 gm/dl (11.8-15.2) L 03/18/17 02:40 Hct 34.1 % (35.5-45.6) L 03/18/17 02:40 MCV 104 fl (84-94) H 03/18/17 02:40 MCH 33 pg (28-32) H 03/18/17 02:40 MCHC 32 % (32-34) 03/18/17 02:40 RDW 15.2 % (13.2-15.2) 03/18/17 02:40 Plt Count 736 K/mm3 (140-440) H 03/18/17 02:40 Lymph % (Auto) 9.6 % (13.4-35.0) L 03/18/17 02:40 [place] % (Auto) 11.4 % (0.0-7.3) H 03/18/17 02:40 Eos % (Auto) 4.1 % (0.0-4.3) 03/18/17 02:40 Baso % (Auto) 0.5 % (0.0-1.8) 03/18/17 02:40 Lymph # 0.9 K/mm3 (1.2-5.4) L 03/18/17 02:40 [place] # 1.1 K/mm3 (0.0-0.8) H 03/18/17 02:40 Eos # 0.4 K/mm3 (0.0-0.4) 03/18/17 02:40 Baso # 0.1 K/mm3 (0.0-0.1) 03/18/17 02:40 Add Manual Diff Complete 03/16/17 04:05 Total Counted 100 03/16/17 04:05 Seg Neutrophils % 74.4 % (40.0-70.0) H 03/18/17 02:40 Seg Neuts % (Manual) 84.0 % (40.0-70.0) H 03/16/17 04:05 Band Neutrophils % 0 % 03/16/17 04:05 Lymphocytes % (Manual) 5.0 % (13.4-35.0) L 03/16/17 04:05 Reactive Lymphs % (Man) 0 % 03/16/17 04:05 Monocytes % (Manual) 8.0 % (0.0-7.3) H 03/16/17 04:05 Eosinophils % (Manual) 3.0 % (0.0-4.3) 03/16/17 04:05 Basophils % (Manual) 0 % (0.0-1.8) 03/16/17 04:05 Metamyelocytes % 0 % 03/16/17 04:05 Myelocytes % 0 % 03/16/17 04:05 Promyelocytes % 0 % 03/16/17 04:05 Blast Cells % 0 % 03/16/17 04:05 Nucleated RBC % Not Reportable 03/16/17 04:05 Seg Neutrophils # 7.3 K/mm3 (1.8-7.7) 03/18/17 02:40 Seg Neutrophils # Man 11.3 K/mm3 (1.8-7.7) H 03/16/17 04:05 Band Neutrophils # 0.0 K/mm3 03/16/17 04:05 Lymphocytes # (Manual) 0.7 K/mm3 (1.2-5.4) L 03/16/17 04:05 Abs React Lymphs (Man) 0.0 K/mm3 03/16/17 04:05 Monocytes # (Manual) 1.1 K/mm3 (0.0-0.8) H 03/16/17 04:05 Eosinophils # (Manual) 0.4 K/mm3 (0.0-0.4) 03/16/17 04:05 Basophils # (Manual) 0.0 K/mm3 (0.0-0.1) 03/16/17 04:05 Metamyelocytes # 0.0 K/mm3 03/16/17 04:05 Myelocytes # 0.0 K/mm3 03/16/17 04:05 Promyelocytes # 0.0 K/mm3 04/17/17 04:05 Blast Cells # 0.0 K/mm3 03/16/17 04:05 WBC Morphology Not Reportable 03/16/17 04:05 Hypersegmented Neuts Not Reportable 03/16/17 04:05 Hyposegmented Neuts Not Reportable 03/16/17 04:05 Hypogranular Neuts Not Reportable 03/16/17 04:05 Smudge Cells Not Reportable 03/16/17 04:05 Toxic Granulation Not Reportable 03/16/17 04:05 Toxic Vacuolation Not Reportable 03/16/17 04:05 Dohle Bodies Not Reportable 03/16/17 04:05 Pelger-Huet Anomaly Not Reportable 03/16/17 04:05 Kev Rods Not Reportable 03/16/17 04:05 Platelet Estimate Appears increased 03/16/17 04:05 Clumped Platelets Not Reportable 03/16/17 04:05 Plt Clumps, EDTA Not Reportable 03/16/17 04:05 Large Platelets Not Reportable 03/16/17 04:05 Giant Platelets Not Reportable 03/16/17 04:05 Platelet Satelliting Not Reportable 03/16/17 04:05 Plt Morphology Comment Not Reportable 03/16/17 04:05 RBC Morphology Normal 03/16/17 04:05 Dimorphic RBCs Not Reportable 03/16/17 04:05 Polychromasia Not Reportable 03/16/17 04:05 Hypochromasia Not Reportable 03/16/17 04:05 Poikilocytosis Not Reportable 03/16/17 04:05 Anisocytosis Not Reportable 03/16/17 04:05 Microcytosis Not Reportable 03/16/17 04:05 Macrocytosis Not Reportable 03/16/17 04:05 Spherocytes Not Reportable 03/16/17 04:05 Pappenheimer Bodies Not Reportable 03/16/17 04:05 Sickle Cells Not Reportable 03/16/17 04:05 Target Cells Not Reportable 03/16/17 04:05 Tear Drop Cells Not Reportable 03/16/17 04:05 Ovalocytes Not Reportable 03/16/17 04:05 Helmet Cells Not Reportable 03/16/17 04:05 [place] Bodies Not Reportable 03/16/17 04:05 [place] Rings Not Reportable 03/16/17 04:05 [place] Cells Not Reportable 03/16/17 04:05 Bite Cells Not Reportable 03/16/17 04:05 Crenated Cell Not Reportable 03/16/17 04:05 Elliptocytes Not Reportable 03/16/17 04:05 Acanthocytes (Spur) Not Reportable 03/16/17 04:05 Rouleaux Not Reportable 03/16/17 04:05 Hemoglobin C Crystals Not Reportable 03/16/17 04:05 Schistocytes Not Reportable 03/16/17 04:05 Malaria parasites Not Reportable 03/16/17 04:05 [place] Bodies Not Reportable 03/16/17 04:05 Hem Pathologist Commnt No 03/16/17 04:05 Sodium 138 mmol/L (137-145) 03/18/17 02:40 Potassium 3.8 mmol/L (3.6-5.0) D 03/18/17 02:40 Chloride 100.3 mmol/L (98-107) 03/18/17 02:40 Carbon Dioxide 25 mmol/L (22-30) D 03/18/17 02:40 Anion Gap 17 mmol/L 03/18/17 02:40 BUN 10 mg/dL (9-20) 03/18/17 02:40 Creatinine 1.1 mg/dL (0.8-1.5) 03/18/17 02:40 Estimated GFR > 60 ml/min 03/18/17 02:40 BUN/Creatinine Ratio 9.09 % 03/18/17 02:40 Glucose 138 mg/dL (75-100) H 03/18/17 02:40 Hemoglobin A1c 5.1 % (4-6) 03/18/17 06:29 Calcium 8.2 mg/dL (8.4-10.2) L D 03/18/17 02:40 Iron 27 ug/dL (49-181) L 03/18/17 02:40 TIBC 287.00 mcg/dL (250-450) 03/18/17 02:40 % Saturation 9.41 % 03/18/17 02:40 Transferrin 205 mg/dl (180-329) 03/18/17 02:40 Total Bilirubin 0.2 mg/dL (0.1-1.2) 03/18/17 02:40 Direct Bilirubin < 0.2 mg/dL (0-0.2) 03/17/17 13:02 AST 23 units/L (5-40) 03/18/17 02:40 ALT 10 units/L (7-56) 03/18/17 02:40 Alkaline Phosphatase 166 units/L (35-129) H 03/18/17 02:40 Ammonia 53.0 umol/L (25-60) 03/18/17 06:29 Total Protein 7.1 g/dL (6.3-8.2) 03/18/17 02:40 Albumin 3.3 g/dL (3.9-5) L 03/18/17 02:40 Albumin/Globulin Ratio 0.9 % 03/18/17 02:40 Amylase 1712 units/L (27-131) H 03/18/17 02:40 Lipase 1844 units/L (13-60) H 03/17/17 13:02 Vitamin B12 722.5 pg/mL (211-911) 03/18/17 02:40 Urine Color Yellow (Yellow) 03/16/17 08:10 Urine Turbidity Clear (Clear) 03/16/17 08:10 Urine pH 5.0 (5.0-7.0) 03/16/17 08:10 Ur Specific [place] 1.015 (1.003-1.030) 03/16/17 08:10 Urine Protein <15 mg/dl mg/dL (Negative) 03/16/17 08:10 Urine Glucose (UA) Neg mg/dL (Negative) 03/16/17 08:10 Urine Ketones Tr mg/dL (Negative) 03/16/17 08:10 Urine Blood Neg (Negative) 03/16/17 08:10 Urine Nitrite Neg (Negative) 03/16/17 08:10 Urine Bilirubin Neg (Negative) 03/16/17 08:10 Urine Urobilinogen < 2.0 mg/dL (<2.0) 03/16/17 08:10 Ur Leukocyte Esterase Tr (Negative) 03/16/17 08:10 Urine WBC (Auto) 2.0 /HPF (0.0-6.0) 03/16/17 08:10 Urine RBC (Auto) < 1.0 /HPF (0.0-6.0) 03/16/17 08:10 Urine Bacteria (Auto) 1+ /HPF (Negative) 03/16/17 08:10 Urine Mucus Few /HPF 03/16/17 08:10 Urine Opiates Screen Presumptive negative 03/16/17 08:10 Urine Methadone Screen Presumptive negative 03/16/17 08:10 Ur Barbiturates Screen Presumptive negative 03/16/17 08:10 Ur Phencyclidine Scrn Presumptive negative 03/16/17 08:10 Ur Amphetamines Screen Presumptive negative 03/16/17 08:10 U Benzodiazepines Scrn Presumptive negative 03/16/17 08:10 Urine Cocaine Screen Presumptive negative 03/16/17 08:10 U Marijuana (THC) Screen Presumptive negative 03/16/17 08:10 Drugs of Abuse Note Disclamer 03/16/17 08:10 Plasma/Serum Alcohol < 0.01 gm% (0-0.07) 03/16/17 04:05
[2017-03-18] MEDS: D5NS 1,000 ML IV SCH ×2 (08:37→17:10)
[2017-03-18] MEDS: PEPCID PO SCH ×2 (09:27→22:40)
--- NOTE | 2017-03-18 14:29 | Progress Note ---
Subjective - Reason for Consult Consult date: 03/18/17 Reason for consult: psychiatric follow-up - Chief Complaint Chief complaint: "I'm good today" Patient reports being shaky and is aware that he is being treated for pancreatitis. He is alert and oriented to person, place, time but throughout the course of the interview, he did not appear to be oriented to time or situation consistently. He is hyperkinetic, and per staff he is up and about the room throughout the day. He was doing needlepoint when I arrived. He denies suicidal or homicidal ideation. He denies hallucinations. He thought that the [place] on the floor was a piece of paper. Mental Status Exam - Vital signs Last Vital Signs Temp 98.9 F 03/18/17 12:00 Pulse 88 03/18/17 12:00 Resp 20 03/18/17 12:08 BP 138/91 03/18/17 12:00 Pulse Ox 97 03/18/17 07:00 - Exam Narrative exam: Psychomotor activity is restless. He reports sleep is improving now and that he rested well last night. He denies suicidal or homicidal ideation. He is possibly experiencing illusions Orientation: place, person Affect: anxious Mood: congruent with affect Thought content: other (unable to elicit delusional thought content) Thought Process: Loose Associations Perceptions: other (unable to elicit reports of auditory hallucinations.) Speech: pressured Concentration: unable to pay attention Motor activity: restless Memory: Recent Impaired Sleep Symptoms: Restless Interaction: cooperative Assessment and Plan Impression: He is currently on CIWA protocol. Differential is delirium Psychosis NOS. 51-year-old white male presents to the emergency department complaining of bugs in his ears. Today patient calm, cooperative with a non linear thought process. Patient stated that he had much more sleep last night. He denies SI/HI's. He appears to be experiencing illusions at this time. Plan: - -Continue 1:1 sitter to verbally redirect instead of using restraints if at all possible - Frequently reorient patient and involve her in their care (simple explanations of procedures, tests, medications). - Lights on and shades open during daytime hours. - Write date and goals of care in a visible place. - Try to avoid unnecessary interruptions to sleep during nighttime hours. - Obtain glasses, hearing aids from home if patient uses these at baseline. - Avoid medications that may exacerbate delirium (especially narcotics, benzodiazepines, barbiturates, ambien, lunesta, and medications with excessive anticholinergic properties) Continue 1013 with possible placement in a inpatient psy services. Continue Zyprexa 5 mg PO HS for psychosis and benadryl 25 mg PO HS for sleep. Gather more collateral information from parents.
[2017-03-18] MEDS: ZOFRAN IV PRN ×2 (17:11→23:40)
[2017-03-18] MEDS: BENADRYL PO SCH (22:40)
[2017-03-19] MEDS: DILAUDID IV PRN ×5 (01:41→22:56)
[2017-03-19] MEDS: D5NS 1,000 ML IV SCH ×2 (03:35→14:09)
[2017-03-19] MEDS: ZOFRAN IV PRN ×3 (08:31→19:06)
[2017-03-19] MEDS: PEPCID PO SCH ×3 (08:32→22:54)
--- NOTE | 2017-03-19 15:24 | Progress Note ---
Subjective - Reason for Consult Consult date: 03/19/17 Reason for consult: psychiatric follow up - Chief Complaint Chief complaint: "Tell me like it is" Mr. Black is a 52 year old male who presented to the ER with AMS and was later admitted to the medical facility for pancreatitis. He is aware that he is being treated for pancreatitis. He is alert and oriented to person, place, time but throughout the course of the interview, he did not appear to be oriented to time or situation consistently. He denies suicidal or homicidal ideation. He denies hallucinations. He discussed alcohol use: Last use before 03/10/17 (unsure if 1 week or 3 weeks) He was drinking 1.5 pints daily for years 03/10/17 Reports he noticed someone who going to harm his family and could not hide it any longer Symptoms escalated from there and he began having auditory and visual hallucinations and increasingly paranoid delusions Mental Status Exam - Vital signs Last Vital Signs Temp 98.3 F 03/19/17 07:46 Pulse 92 H 03/19/17 07:46 Resp 18 03/19/17 07:46 BP 158/90 03/19/17 07:46 Pulse Ox 98 03/19/17 07:46 - Exam Orientation: place, person Affect: anxious, other (irritable) Mood: anxious Thought content: other (denies paranoia and knows the perceptual disturbances he was having are not in reality) Thought Process: Tangential Perceptions: none Speech: pressured Concentration: distractible Motor activity: restless Level of consciousness: alert Memory: Recent Impaired Sleep Symptoms: None Interaction: cooperative Assessment and Plan Impression: He is currently on CIWA protocol. Differential is delirium (DTs) Psychosis NOS. 51-year-old white male presents to the emergency department complaining of bugs in his ears. Today patient calm, cooperative with a non linear thought process. Patient stated that he had much more sleep last night. He denies SI/HI's. Plan: - -Continue 1:1 sitter to verbally redirect instead of using restraints if at all possible - Frequently reorient patient and involve her in their care (simple explanations of procedures, tests, medications). - Lights on and shades open during daytime hours. - Write date and goals of care in a visible place. - Try to avoid unnecessary interruptions to sleep during nighttime hours. - Obtain glasses, hearing aids from home if patient uses these at baseline. Continue 1013 with possible placement in a inpatient psy services. Continue Zyprexa 5 mg PO HS for psychosis and benadryl 25 mg PO HS for sleep. Gather more collateral information from parents.
--- NOTE | 2017-03-19 18:03 | Progress Note ---
Assessment and Plan Assessment and plan: Acute alcohol pancreatitis. He is on clear liquid diet. Lipase elevated. He is not tolerating diet. Continue clear liquid as tolerated. Psychosis-schizoaffective disorder with Delirium. Psychiartry following. 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 Now Resolved, creatinine 1.1 Anemia of chronic disease likely secondary to nutritional deficiency, alcohol abuse Moderate protein calorie malnutrition Hyperkalemia. This is now resolved potassium 3.8 Thrombocytosis DVT prophylaxis. Lovenox History Interval history: Nausea, Did not tolerate his food Hospitalist Physical - Physical exam Narrative exam: Gen: Not in acute distress, HEENT: Normocephalic, atraumatic Neck: supple, no JVD Lungs: Normal breath sounds bilaterally, no crackles or wheeze Heart S1-S2 regular, no murmurs rubs or gallop, Abdomen: soft, mild tender, no rebound tenderness, normal bowel sounds Ext: No edema,no clubbing, no cyanosis Neuro: Awake.alert, no focal neurological signs - Constitutional Vitals: Temp Pulse Resp BP Pulse Ox 98.8 F 81 18 146/85 98 03/19/17 17:00 03/19/17 17:00 03/19/17 17:00 03/19/17 17:00 03/19/17 17:00 General appearance: Present: no acute distress, well-nourished Results - Labs CBC & Chem 7: 03/18/17 02:40 03/18/17 02:40 Labs: Laboratory Last Values WBC 9.8 K/mm3 (4.5-11.0) 03/18/17 02:40 RBC 3.28 M/mm3 (3.65-5.03) L 03/18/17 02:40 Hgb 11.0 gm/dl (11.8-15.2) L 03/18/17 02:40 Hct 34.1 % (35.5-45.6) L 03/18/17 02:40 MCV 104 fl (84-94) H 03/18/17 02:40 MCH 33 pg (28-32) H 03/18/17 02:40 MCHC 32 % (32-34) 03/18/17 02:40 RDW 15.2 % (13.2-15.2) 03/18/17 02:40 Plt Count 736 K/mm3 (140-440) H 03/18/17 02:40 Lymph % (Auto) 9.6 % (13.4-35.0) L 03/18/17 02:40 [place] % (Auto) 11.4 % (0.0-7.3) H 03/18/17 02:40 Eos % (Auto) 4.1 % (0.0-4.3) 03/18/17 02:40 Baso % (Auto) 0.5 % (0.0-1.8) 03/18/17 02:40 Lymph # 0.9 K/mm3 (1.2-5.4) L 03/18/17 02:40 [place]ke # 1.1 K/mm3 (0.0-0.8) H 03/18/17 02:40 Eos # 0.4 K/mm3 (0.0-0.4) 03/18/17 02:40 Baso # 0.1 K/mm3 (0.0-0.1) 03/18/17 02:40 Add Manual Diff Complete 03/16/17 04:05 Total Counted 100 03/16/17 04:05 Seg Neutrophils % 74.4 % (40.0-70.0) H 03/18/17 02:40 Seg Neuts % (Manual) 84.0 % (40.0-70.0) H 03/16/17 04:05 Band Neutrophils % 0 % 03/16/17 04:05 Lymphocytes % (Manual) 5.0 % (13.4-35.0) L 03/16/17 04:05 Reactive Lymphs % (Man) 0 % 03/16/17 04:05 Monocytes % (Manual) 8.0 % (0.0-7.3) H 03/16/17 04:05 Eosinophils % (Manual) 3.0 % (0.0-4.3) 03/16/17 04:05 Basophils % (Manual) 0 % (0.0-1.8) 03/16/17 04:05 Metamyelocytes % 0 % 03/16/17 04:05 Myelocytes % 0 % 03/16/17 04:05 Promyelocytes % 0 % 03/16/17 04:05 Blast Cells % 0 % 03/16/17 04:05 Nucleated RBC % Not Reportable 03/16/17 04:05 Seg Neutrophils # 7.3 K/mm3 (1.8-7.7) 03/18/17 02:40 Seg Neutrophils # Man 11.3 K/mm3 (1.8-7.7) H 03/16/17 04:05 Band Neutrophils # 0.0 K/mm3 03/16/17 04:05 Lymphocytes # (Manual) 0.7 K/mm3 (1.2-5.4) L 03/16/17 04:05 Abs React Lymphs (Man) 0.0 K/mm3 03/16/17 04:05 Monocytes # (Manual) 1.1 K/mm3 (0.0-0.8) H 03/16/17 04:05 Eosinophils # (Manual) 0.4 K/mm3 (0.0-0.4) 03/16/17 04:05 Basophils # (Manual) 0.0 K/mm3 (0.0-0.1) 03/16/17 04:05 Metamyelocytes # 0.0 K/mm3 03/16/17 04:05 Myelocytes # 0.0 K/mm3 03/16/17 04:05 Promyelocytes # 0.0 K/mm3 03/16/17 04:05 Blast Cells # 0.0 K/mm3 03/16/17 04:05 WBC Morphology Not Reportable 03/16/17 04:05 Hypersegmented Neuts Not Reportable 03/16/17 04:05 Hyposegmented Neuts Not Reportable 03/16/17 04:05 Hypogranular Neuts Not Reportable 03/16/17 04:05 Smudge Cells Not Reportable 03/16/17 04:05 Toxic Granulation Not Reportable 03/16/17 04:05 Toxic Vacuolation Not Reportable 03/16/17 04:05 Dohle Bodies Not Reportable 03/16/17 04:05 Pelger-Huet Anomaly Not Reportable 03/16/17 04:05 Kev Rods Not Reportable 03/16/17 04:05 Platelet Estimate Appears increased 03/16/17 04:05 Clumped Platelets Not Reportable 03/16/17 04:05 Plt Clumps, EDTA Not Reportable 03/16/17 04:05 Large Platelets Not Reportable 03/16/17 04:05 Giant Platelets Not Reportable 03/16/17 04:05 Platelet Satelliting Not Reportable 03/16/17 04:05 Plt Morphology Comment Not Reportable 03/16/17 04:05 RBC Morphology Normal 03/16/17 04:05 Dimorphic RBCs Not Reportable 03/16/17 04:05 Polychromasia Not Reportable 03/16/17 04:05 Hypochromasia Not Reportable 03/16/17 04:05 Poikilocytosis Not Reportable 03/16/17 04:05 Anisocytosis Not Reportable 03/16/17 04:05 Microcytosis Not Reportable 03/16/17 04:05 Macrocytosis Not Reportable 03/16/17 04:05 Spherocytes Not Reportable 03/16/17 04:05 Pappenheimer Bodies Not Reportable 03/16/17 04:05 Sickle Cells Not Reportable 03/16/17 04:05 Target Cells Not Reportable 03/16/17 04:05 Tear Drop Cells Not Reportable 03/16/17 04:05 Ovalocytes Not Reportable 03/16/17 04:05 Helmet Cells Not Reportable 03/16/17 04:05 [place] Bodies Not Reportable 03/16/17 04:05 [place] Rings Not Reportable 03/16/17 04:05 [place] Cells Not Reportable 03/16/17 04:05 Bite Cells Not Reportable 03/16/17 04:05 Crenated Cell Not Reportable 03/16/17 04:05 Elliptocytes Not Reportable 03/16/17 04:05 Acanthocytes (Spur) Not Reportable 03/16/17 04:05 Rouleaux Not Reportable 03/16/17 04:05 Hemoglobin C Crystals Not Reportable 03/16/17 04:05 Schistocytes Not Reportable 03/16/17 04:05 Malaria parasites Not Reportable 03/16/17 04:05 Nathan Bodies Not Reportable 03/16/17 04:05 Hem Pathologist Commnt No 03/16/17 04:05 Sodium 138 mmol/L (137-145) 03/18/17 02:40 Potassium 3.8 mmol/L (3.6-5.0) D 03/18/17 02:40 Chloride 100.3 mmol/L (98-107) 03/18/17 02:40 Carbon Dioxide 25 mmol/L (22-30) D 03/18/17 02:40 Anion Gap 17 mmol/L 03/18/17 02:40 BUN 10 mg/dL (9-20) 03/18/17 02:40 Creatinine 1.1 mg/dL (0.8-1.5) 03/18/17 02:40 Estimated GFR > 60 ml/min 03/18/17 02:40 BUN/Creatinine Ratio 9.09 % 03/18/17 02:40 Glucose 138 mg/dL (75-100) H 03/18/17 02:40 POC Glucose 109 (70-105) H 03/19/17 07:52 Hemoglobin A1c 5.1 % (4-6) 03/18/17 06:29 Calcium 8.2 mg/dL (8.4-10.2) L D 03/18/17 02:40 Iron 27 ug/dL (49-181) L 03/18/17 02:40 TIBC 287.00 mcg/dL (250-450) 03/18/17 02:40 % Saturation 9.41 % 03/18/17 02:40 Transferrin 205 mg/dl (180-329) 03/18/17 02:40 Total Bilirubin 0.2 mg/dL (0.1-1.2) 03/18/17 02:40 Direct Bilirubin < 0.2 mg/dL (0-0.2) 03/17/17 13:02 AST 23 units/L (5-40) 03/18/17 02:40 ALT 10 units/L (7-56) 03/18/17 02:40 Alkaline Phosphatase 166 units/L (35-129) H 03/18/17 02:40 Ammonia 53.0 umol/L (25-60) 03/18/17 06:29 Total Protein 7.1 g/dL (6.3-8.2) 03/18/17 02:40 Albumin 3.3 g/dL (3.9-5) L 03/18/17 02:40 Albumin/Globulin Ratio 0.9 % 03/18/17 02:40 Amylase 1712 units/L (27-131) H 03/18/17 02:40 Lipase 248 units/L (13-60) H 03/19/17 09:13 Vitamin B12 722.5 pg/mL (211-911) 03/18/17 02:40 Urine Color Yellow (Yellow) 03/16/17 08:10 Urine Turbidity Clear (Clear) 03/16/17 08:10 Urine pH 5.0 (5.0-7.0) 03/16/17 08:10 Ur Specific [place] 1.015 (1.003-1.030) 03/16/17 08:10 Urine Protein <15 mg/dl mg/dL (Negative) 03/16/17 08:10 Urine Glucose (UA) Neg mg/dL (Negative) 03/16/17 08:10 Urine Ketones Tr mg/dL (Negative) 03/16/17 08:10 Urine Blood Neg (Negative) 03/16/17 08:10 Urine Nitrite Neg (Negative) 03/16/17 08:10 Urine Bilirubin Neg (Negative) 03/16/17 08:10 Urine Urobilinogen < 2.0 mg/dL (<2.0) 03/16/17 08:10 Ur Leukocyte Esterase Tr (Negative) 03/16/17 08:10 Urine WBC (Auto) 2.0 /HPF (0.0-6.0) 03/16/17 08:10 Urine RBC (Auto) < 1.0 /HPF (0.0-6.0) 03/16/17 08:10 Urine Bacteria (Auto) 1+ /HPF (Negative) 03/16/17 08:10 Urine Mucus Few /HPF 03/16/17 08:10 Urine Opiates Screen Presumptive negative 03/16/17 08:10 Urine Methadone Screen Presumptive negative 03/16/17 08:10 Ur Barbiturates Screen Presumptive negative 03/16/17 08:10 Ur Phencyclidine Scrn Presumptive negative 03/16/17 08:10 Ur Amphetamines Screen Presumptive negative 03/16/17 08:10 U Benzodiazepines Scrn Presumptive negative 03/16/17 08:10 Urine Cocaine Screen Presumptive negative 03/16/17 08:10 U Marijuana (THC) Screen Presumptive negative 03/16/17 08:10 Drugs of Abuse Note Disclamer 03/16/17 08:10 Plasma/Serum Alcohol < 0.01 gm% (0-0.07) 03/16/17 04:05
[2017-03-19] MEDS: HABITROL TD SCH (19:06)
[2017-03-19] MEDS: LOVENOX SUB-Q SCH (22:52)
[2017-03-19] MEDS: BENADRYL PO SCH (22:54)
[2017-03-20] MEDS: D5NS 1,000 ML IV SCH ×2 (01:55→15:14)
[2017-03-20] MEDS: DILAUDID IV PRN ×5 (04:50→23:01)
[2017-03-20] MEDS: ZOFRAN IV PRN ×2 (04:50→09:12)
[2017-03-20] MEDS: HABITROL TD SCH (09:12)
[2017-03-20] MEDS: PEPCID PO SCH ×2 (09:12→23:00)
--- NOTE | 2017-03-20 10:10 | Discharge Summary ---
Providers - Providers Date of Admission: 03/17/17 14:45 Date of discharge: 03/22/17 Attending physician: ALANA MOSER 03/17/17 18:59 Consult to Mental Health [CONS] Routine Reason For Exam: psychosis Place consult to:: MARISSA Notified:: yes Phone number called:: [phone] Was contact made?: Yes If yes, spoke with:: Lyle Time called:: 19:10 Primary care physician: TUBE TELLER Hospitalization Condition: Fair Disposition: DISCHARGED TO HOME OR SELFCARE - Discharge Diagnoses (1) Pancreatitis, acute Status: Acute Qualifiers: Pancreatitis type: unspecified pancreatitis type Acute pancreatitis complication: A (2) Psychosis Status: Acute Qualifiers: Psychosis type: unspecified psychosis type Schizoaffective disorder type: S Schizophrenia type: S Qualified Code(s): F29 - Unspecified psychosis not due to a substance or known physiological condition Exam - Constitutional Vitals: Temp Pulse Resp BP Pulse Ox 99.0 F 84 18 148/94 100 03/20/17 07:26 03/20/17 07:26 03/20/17 07:26 03/20/17 07:26 03/20/17 07:26 Plan Activity: advance as tolerated Diet: low fat, low cholesterol, other (soft diet) Additional Instructions: 1.Avoid alcohol. 2.Follow up with [facility] in 1 week. 3.Follow up with outpatient Alcohol rehab facility Follow up with: PRIMARY CARE, [Primary Care Provider] - 3-5 Days Prescriptions: Famotidine [Pepcid] 20 mg PO BID #30 tablet Ondansetron [Zofran TAB] 4 mg PO Q8HR PRN #20 tablet PRN Reason: nausea or vomiting traMADol [Ultram 50 MG tab] 50 mg PO Q6HR PRN #20 tablet PRN Reason: Pain
--- NOTE | 2017-03-20 15:46 | Progress Note ---
Subjective - Reason for Consult Consult date: 03/20/17 Reason for consult: Psychiatry Follow-up - Chief Complaint Chief complaint: "I definitely feel better" Mr. Black is a 52 year old male who presented to the ER with AMS and was later admitted to the medical facility for pancreatitis. Today patient is calm, cooperative with linear thought process. He state that he been drinking alcohol (Ehoh) since he was a teenager. 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 He stated that he has a son and they both resides with his parents. He stated that he wants to stop drinking for himself and his son. He stated he is sleeping well and his appetite is "outstanding." He denies SI/HI's and AVH's. Collateral information from Bee Black ([phone]) - Patient's mom stated that this was his first episode of psychosis. She stated that he drinks a lot. She encourage him to get some help with psy services. Also, she does not want him to return to their home until he get help for his alcoholism. She did confirm that he has a 11 yr old son that reside with them. Mental Status Exam - Vital signs Last Vital Signs Temp 99.6 F 03/20/17 14:45 Pulse 84 03/20/17 14:45 Resp 18 03/20/17 14:45 BP 161/96 03/20/17 14:45 Pulse Ox 100 03/20/17 07:26 - Exam Narrative exam: MSE: Appearance: calm, cooperative Behavior: good eye contact Speech: regular rate and tone Mood: "I am good" Affect: congruent Thought Process: linear Thought Content: denies SI/HI's Cognition: A/O x3 Insight: fair Judgment: fair Assessment and Plan Impression: Mr. Black is a 52 year old male who presented to the ER with AMS and was later admitted to the medical facility for pancreatitis. Today patient is calm, cooperative with linear thought process. He state that he been drinking since he was a teenager. 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 Patient stated that he had much more sleep last night. He denies SI/HI's. No withdrawals symptoms noted during assessment. No Ativan given per CIWA Protocol. No signs of psychosis. Collateral information from Bee Black ([phone]) - Patient's mom stated that this was his first episode of psychosis. She stated that he drinks a lot. She encourage him to get some help with psy services. Also, she does not want him to return to their home until he get help for his alcoholism. She did confirm that he has a 11 yr old son that reside with them. Recommendation/Plan: Rescind 1013. D/C'd Jonas and Carole. Will reassess tomorrow.
--- NOTE | 2017-03-20 16:56 | Progress Note ---
Assessment and Plan Assessment and plan: Acute alcohol pancreatitis. He feels much better, is tolerating his diet. Advance to soft, low fat diet. He is medically stable for discharge to psychiatric facility. Psychosis-schizoaffective disorder with Delirium. Psychiatry following. 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 Now Resolved, creatinine 1.1 Anemia of chronic disease likely secondary to nutritional deficiency, alcohol abuse Moderate protein calorie malnutrition Hyperkalemia. This is now resolved potassium 3.8 Thrombocytosis DVT prophylaxis. Lovenox He is medically stable for discharge. Awaiting. - Patient Problems (1) Pancreatitis, acute Current Visit: Yes Status: Acute Qualifiers: Pancreatitis type: unspecified pancreatitis type Acute pancreatitis complication: A (2) Psychosis Current Visit: Yes Status: Acute Qualifiers: Psychosis type: unspecified psychosis type Schizoaffective disorder type: S Schizophrenia type: S Qualified Code(s): F29 - Unspecified psychosis not due to a substance or known physiological condition History Interval history: Nausea, feels better, tolerates his food Hospitalist Physical - Physical exam Narrative exam: Gen: Not in acute distress, HEENT: Normocephalic, atraumatic Neck: supple, no JVD Lungs: Normal breath sounds bilaterally, no crackles or wheeze Heart S1-S2 regular, no murmurs rubs or gallop, Abdomen: soft, mild tender, no rebound tenderness, normal bowel sounds Ext: No edema,no clubbing, no cyanosis Neuro: Awake.alert, no focal neurological signs - Constitutional Vitals: Temp Pulse Resp BP Pulse Ox 99.6 F 84 18 161/96 100 03/20/17 14:45 03/20/17 14:45 03/20/17 14:45 03/20/17 14:45 03/20/17 07:26 General appearance: Present: no acute distress, well-nourished Results - Labs CBC & Chem 7: 03/18/17 02:40 03/18/17 02:40 Labs: Laboratory Last Values WBC 9.8 K/mm3 (4.5-11.0) 03/18/17 02:40 RBC 3.28 M/mm3 (3.65-5.03) L 03/18/17 02:40 Hgb 11.0 gm/dl (11.8-15.2) L 03/18/17 02:40 Hct 34.1 % (35.5-45.6) L 03/18/17 02:40 MCV 104 fl (84-94) H 03/18/17 02:40 MCH 33 pg (28-32) H 03/18/17 02:40 MCHC 32 % (32-34) 03/18/17 02:40 RDW 15.2 % (13.2-15.2) 03/18/17 02:40 Plt Count 736 K/mm3 (140-440) H 03/18/17 02:40 Lymph % (Auto) 9.6 % (13.4-35.0) L 03/18/17 02:40 [place] % (Auto) 11.4 % (0.0-7.3) H 03/18/17 02:40 Eos % (Auto) 4.1 % (0.0-4.3) 03/18/17 02:40 Baso % (Auto) 0.5 % (0.0-1.8) 03/18/17 02:40 Lymph # 0.9 K/mm3 (1.2-5.4) L 03/18/17 02:40 [place] # 1.1 K/mm3 (0.0-0.8) H 03/18/17 02:40 Eos # 0.4 K/mm3 (0.0-0.4) 03/18/17 02:40 Baso # 0.1 K/mm3 (0.0-0.1) 03/18/17 02:40 Add Manual Diff Complete 03/16/17 04:05 Total Counted 100 03/16/17 04:05 Seg Neutrophils % 74.4 % (40.0-70.0) H 03/18/17 02:40 Seg Neuts % (Manual) 84.0 % (40.0-70.0) H 03/16/17 04:05 Band Neutrophils % 0 % 03/16/17 04:05 Lymphocytes % (Manual) 5.0 % (13.4-35.0) L 03/16/17 04:05 Reactive Lymphs % (Man) 0 % 03/16/17 04:05 Monocytes % (Manual) 8.0 % (0.0-7.3) H 03/16/17 04:05 Eosinophils % (Manual) 3.0 % (0.0-4.3) 03/16/17 04:05 Basophils % (Manual) 0 % (0.0-1.8) 03/16/17 04:05 Metamyelocytes % 0 % 03/16/17 04:05 Myelocytes % 0 % 03/16/17 04:05 Promyelocytes % 0 % 03/16/17 04:05 Blast Cells % 0 % 03/16/17 04:05 Nucleated RBC % Not Reportable 03/16/17 04:05 Seg Neutrophils # 7.3 K/mm3 (1.8-7.7) 03/18/17 02:40 Seg Neutrophils # Man 11.3 K/mm3 (1.8-7.7) H 03/16/17 04:05 Band Neutrophils # 0.0 K/mm3 03/16/17 04:05 Lymphocytes # (Manual) 0.7 K/mm3 (1.2-5.4) L 03/16/17 04:05 Abs React Lymphs (Man) 0.0 K/mm3 03/16/17 04:05 Monocytes # (Manual) 1.1 K/mm3 (0.0-0.8) H 03/16/17 04:05 Eosinophils # (Manual) 0.4 K/mm3 (0.0-0.4) 03/16/17 04:05 Basophils # (Manual) 0.0 K/mm3 (0.0-0.1) 03/16/17 04:05 Metamyelocytes # 0.0 K/mm3 03/16/17 04:05 Myelocytes # 0.0 K/mm3 03/16/17 04:05 Promyelocytes # 0.0 K/mm3 03/16/17 04:05 Blast Cells # 0.0 K/mm3 03/16/17 04:05 WBC Morphology Not Reportable 03/16/17 04:05 Hypersegmented Neuts Not Reportable 03/16/17 04:05 Hyposegmented Neuts Not Reportable 03/16/17 04:05 Hypogranular Neuts Not Reportable 03/16/17 04:05 Smudge Cells Not Reportable 03/16/17 04:05 Toxic Granulation Not Reportable 03/16/17 04:05 Toxic Vacuolation Not Reportable 03/16/17 04:05 Dohle Bodies Not Reportable 03/16/17 04:05 Pelger-Huet Anomaly Not Reportable 03/16/17 04:05 Kev Rods Not Reportable 03/16/17 04:05 Platelet Estimate Appears increased 03/16/17 04:05 Clumped Platelets Not Reportable 03/16/17 04:05 Plt Clumps, EDTA Not Reportable 03/16/17 04:05 Large Platelets Not Reportable 03/16/17 04:05 Giant Platelets Not Reportable 03/16/17 04:05 Platelet Satelliting Not Reportable 03/16/17 04:05 Plt Morphology Comment Not Reportable 03/16/17 04:05 RBC Morphology Normal 03/16/17 04:05 Dimorphic RBCs Not Reportable 03/16/17 04:05 Polychromasia Not Reportable 03/16/17 04:05 Hypochromasia Not Reportable 03/16/17 04:05 Poikilocytosis Not Reportable 03/16/17 04:05 Anisocytosis Not Reportable 03/16/17 04:05 Microcytosis Not Reportable 03/16/17 04:05 Macrocytosis Not Reportable 03/16/17 04:05 Spherocytes Not Reportable 03/16/17 04:05 Pappenheimer Bodies Not Reportable 03/16/17 04:05 Sickle Cells Not Reportable 03/16/17 04:05 Target Cells Not Reportable 03/16/17 04:05 Tear Drop Cells Not Reportable 03/16/17 04:05 Ovalocytes Not Reportable 03/16/17 04:05 Helmet Cells Not Reportable 03/16/17 04:05 [place] Bodies Not Reportable 03/16/17 04:05 [place] Rings Not Reportable 03/16/17 04:05 [place] Cells Not Reportable 03/16/17 04:05 Bite Cells Not Reportable 03/16/17 04:05 Crenated Cell Not Reportable 03/16/17 04:05 Elliptocytes Not Reportable 03/16/17 04:05 Acanthocytes (Spur) Not Reportable 03/16/17 04:05 Rouleaux Not Reportable 03/16/17 04:05 Hemoglobin C Crystals Not Reportable 03/16/17 04:05 Schistocytes Not Reportable 03/16/17 04:05 Malaria parasites Not Reportable 03/16/17 04:05 Nathan Bodies Not Reportable 03/16/17 04:05 Hem Pathologist Commnt No 03/16/17 04:05 Sodium 138 mmol/L (137-145) 03/18/17 02:40 Potassium 3.8 mmol/L (3.6-5.0) D 03/18/17 02:40 Chloride 100.3 mmol/L (98-107) 03/18/17 02:40 Carbon Dioxide 25 mmol/L (22-30) D 03/18/17 02:40 Anion Gap 17 mmol/L 03/18/17 02:40 BUN 10 mg/dL (9-20) 03/18/17 02:40 Creatinine 1.1 mg/dL (0.8-1.5) 03/18/17 02:40 Estimated GFR > 60 ml/min 03/18/17 02:40 BUN/Creatinine Ratio 9.09 % 03/18/17 02:40 Glucose 138 mg/dL (75-100) H 03/18/17 02:40 POC Glucose 109 (70-105) H 03/19/17 07:52 Hemoglobin A1c 5.1 % (4-6) 03/18/17 06:29 Calcium 8.2 mg/dL (8.4-10.2) L D 03/18/17 02:40 Iron 27 ug/dL (49-181) L 03/18/17 02:40 TIBC 287.00 mcg/dL (250-450) 03/18/17 02:40 % Saturation 9.41 % 03/18/17 02:40 Transferrin 205 mg/dl (180-329) 03/18/17 02:40 Total Bilirubin 0.2 mg/dL (0.1-1.2) 03/18/17 02:40 Direct Bilirubin < 0.2 mg/dL (0-0.2) 03/17/17 13:02 AST 23 units/L (5-40) 03/18/17 02:40 ALT 10 units/L (7-56) 03/18/17 02:40 Alkaline Phosphatase 166 units/L (35-129) H 03/18/17 02:40 Ammonia 53.0 umol/L (25-60) 03/18/17 06:29 Total Protein 7.1 g/dL (6.3-8.2) 03/18/17 02:40 Albumin 3.3 g/dL (3.9-5) L 03/18/17 02:40 Albumin/Globulin Ratio 0.9 % 03/18/17 02:40 Amylase 1712 units/L (27-131) H 03/18/17 02:40 Lipase 248 units/L (13-60) H 03/19/17 09:13 Vitamin B12 722.5 pg/mL (211-911) 03/18/17 02:40 Urine Color Yellow (Yellow) 03/16/17 08:10 Urine Turbidity Clear (Clear) 03/16/17 08:10 Urine pH 5.0 (5.0-7.0) 03/16/17 08:10 Ur Specific [place] 1.015 (1.003-1.030) 03/16/17 08:10 Urine Protein <15 mg/dl mg/dL (Negative) 03/16/17 08:10 Urine Glucose (UA) Neg mg/dL (Negative) 03/16/17 08:10 Urine Ketones Tr mg/dL (Negative) 03/16/17 08:10 Urine Blood Neg (Negative) 03/16/17 08:10 Urine Nitrite Neg (Negative) 03/16/17 08:10 Urine Bilirubin Neg (Negative) 03/16/17 08:10 Urine Urobilinogen < 2.0 mg/dL (<2.0) 03/16/17 08:10 Ur Leukocyte Esterase Tr (Negative) 03/16/17 08:10 Urine WBC (Auto) 2.0 /HPF (0.0-6.0) 03/16/17 08:10 Urine RBC (Auto) < 1.0 /HPF (0.0-6.0) 03/16/17 08:10 Urine Bacteria (Auto) 1+ /HPF (Negative) 03/16/17 08:10 Urine Mucus Few /HPF 03/16/17 08:10 Urine Opiates Screen Presumptive negative 03/16/17 08:10 Urine Methadone Screen Presumptive negative 03/16/17 08:10 Ur Barbiturates Screen Presumptive negative 03/16/17 08:10 Ur Phencyclidine Scrn Presumptive negative 03/16/17 08:10 Ur Amphetamines Screen Presumptive negative 03/16/17 08:10 U Benzodiazepines Scrn Presumptive negative 03/16/17 08:10 Urine Cocaine Screen Presumptive negative 03/16/17 08:10 U Marijuana (THC) Screen Presumptive negative 03/16/17 08:10 Drugs of Abuse Note Disclamer 03/16/17 08:10 Plasma/Serum Alcohol < 0.01 gm% (0-0.07) 03/16/17 04:05
[2017-03-20] MEDS: LOVENOX SUB-Q SCH (23:00)
[2017-03-21] MEDS: DILAUDID IV PRN ×5 (06:59→23:03)
[2017-03-21] MEDS: PEPCID PO SCH ×2 (10:30→22:59)
[2017-03-21] MEDS: HABITROL TD SCH (10:30)
[2017-03-21] MEDS: ZOFRAN IV PRN ×3 (11:04→20:27)
--- NOTE | 2017-03-21 12:21 | Progress Note ---
Assessment and Plan Assessment and plan: Acute alcohol pancreatitis. He feels much better, is tolerating his diet. Now on soft, low fat diet. He is medically stable for discharge to psychiatric facility. Psychosis-schizoaffective disorder with Delirium. Psychiatry following. 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 Now Resolved, creatinine 1.1 Anemia of chronic disease likely secondary to nutritional deficiency, alcohol abuse Moderate protein calorie malnutrition Hyperkalemia. This is now resolved. Thrombocytosis DVT prophylaxis. Lovenox He is medically stable for discharge. Awaiting placement.. - Patient Problems (1) Pancreatitis, acute Current Visit: Yes Status: Acute Qualifiers: Pancreatitis type: unspecified pancreatitis type Acute pancreatitis complication: A (2) Psychosis Current Visit: Yes Status: Acute Qualifiers: Psychosis type: unspecified psychosis type Schizoaffective disorder type: S Schizophrenia type: S Qualified Code(s): F29 - Unspecified psychosis not due to a substance or known physiological condition History Interval history: feels better, tolerates his food, Hospitalist Physical - Physical exam Narrative exam: Gen: Not in acute distress, HEENT: Normocephalic, atraumatic Neck: supple, no JVD Lungs: Normal breath sounds bilaterally, no crackles or wheeze Heart S1-S2 regular, no murmurs rubs or gallop, Abdomen: soft, mild tender, no rebound tenderness, normal bowel sounds Ext: No edema,no clubbing, no cyanosis Neuro: Awake.alert, no focal neurological signs - Constitutional Vitals: Temp Pulse Resp BP Pulse Ox 98.6 F 86 20 125/79 96 03/21/17 11:35 03/21/17 11:35 03/21/17 11:35 03/21/17 11:35 03/21/17 07:56 General appearance: Present: no acute distress, well-nourished Results - Labs CBC & Chem 7: 03/18/17 02:40 03/18/17 02:40 Labs: Laboratory Last Values WBC 9.8 K/mm3 (4.5-11.0) 03/18/17 02:40 RBC 3.28 M/mm3 (3.65-5.03) L 03/18/17 02:40 Hgb 11.0 gm/dl (11.8-15.2) L 03/18/17 02:40 Hct 34.1 % (35.5-45.6) L 03/18/17 02:40 MCV 104 fl (84-94) H 03/18/17 02:40 MCH 33 pg (28-32) H 03/18/17 02:40 MCHC 32 % (32-34) 03/18/17 02:40 RDW 15.2 % (13.2-15.2) 03/18/17 02:40 Plt Count 736 K/mm3 (140-440) H 03/18/17 02:40 Lymph % (Auto) 9.6 % (13.4-35.0) L 03/18/17 02:40 [place] % (Auto) 11.4 % (0.0-7.3) H 03/18/17 02:40 Eos % (Auto) 4.1 % (0.0-4.3) 03/18/17 02:40 Baso % (Auto) 0.5 % (0.0-1.8) 03/18/17 02:40 Lymph # 0.9 K/mm3 (1.2-5.4) L 03/18/17 02:40 [place] # 1.1 K/mm3 (0.0-0.8) H 03/18/17 02:40 Eos # 0.4 K/mm3 (0.0-0.4) 03/18/17 02:40 Baso # 0.1 K/mm3 (0.0-0.1) 03/18/17 02:40 Add Manual Diff Complete 03/16/17 04:05 Total Counted 100 03/16/17 04:05 Seg Neutrophils % 74.4 % (40.0-70.0) H 03/18/17 02:40 Seg Neuts % (Manual) 84.0 % (40.0-70.0) H 03/16/17 04:05 Band Neutrophils % 0 % 03/16/17 04:05 Lymphocytes % (Manual) 5.0 % (13.4-35.0) L 03/16/17 04:05 Reactive Lymphs % (Man) 0 % 03/16/17 04:05 Monocytes % (Manual) 8.0 % (0.0-7.3) H 03/16/17 04:05 Eosinophils % (Manual) 3.0 % (0.0-4.3) 03/16/17 04:05 Basophils % (Manual) 0 % (0.0-1.8) 03/16/17 04:05 Metamyelocytes % 0 % 03/16/17 04:05 Myelocytes % 0 % 03/16/17 04:05 Promyelocytes % 0 % 03/16/17 04:05 Blast Cells % 0 % 03/16/17 04:05 Nucleated RBC % Not Reportable 03/16/17 04:05 Seg Neutrophils # 7.3 K/mm3 (1.8-7.7) 03/18/17 02:40 Seg Neutrophils # Man 11.3 K/mm3 (1.8-7.7) H 03/16/17 04:05 Band Neutrophils # 0.0 K/mm3 03/16/17 04:05 Lymphocytes # (Manual) 0.7 K/mm3 (1.2-5.4) L 03/16/17 04:05 Abs React Lymphs (Man) 0.0 K/mm3 03/16/17 04:05 Monocytes # (Manual) 1.1 K/mm3 (0.0-0.8) H 03/16/17 04:05 Eosinophils # (Manual) 0.4 K/mm3 (0.0-0.4) 03/16/17 04:05 Basophils # (Manual) 0.0 K/mm3 (0.0-0.1) 03/16/17 04:05 Metamyelocytes # 0.0 K/mm3 03/16/17 04:05 Myelocytes # 0.0 K/mm3 03/16/17 04:05 Promyelocytes # 0.0 K/mm3 03/16/17 04:05 Blast Cells # 0.0 K/mm3 03/16/17 04:05 WBC Morphology Not Reportable 03/16/17 04:05 Hypersegmented Neuts Not Reportable 03/16/17 04:05 Hyposegmented Neuts Not Reportable 03/16/17 04:05 Hypogranular Neuts Not Reportable 03/16/17 04:05 Smudge Cells Not Reportable 03/16/17 04:05 Toxic Granulation Not Reportable 03/16/17 04:05 Toxic Vacuolation Not Reportable 03/16/17 04:05 Dohle Bodies Not Reportable 03/16/17 04:05 Pelger-Huet Anomaly Not Reportable 03/16/17 04:05 Kev Rods Not Reportable 03/16/17 04:05 Platelet Estimate Appears increased 03/16/17 04:05 Clumped Platelets Not Reportable 03/16/17 04:05 Plt Clumps, EDTA Not Reportable 03/16/17 04:05 Large Platelets Not Reportable 03/16/17 04:05 Giant Platelets Not Reportable 03/16/17 04:05 Platelet Satelliting Not Reportable 03/16/17 04:05 Plt Morphology Comment Not Reportable 03/16/17 04:05 RBC Morphology Normal 03/16/17 04:05 Dimorphic RBCs Not Reportable 03/16/17 04:05 Polychromasia Not Reportable 03/16/17 04:05 Hypochromasia Not Reportable 03/16/17 04:05 Poikilocytosis Not Reportable 03/16/17 04:05 Anisocytosis Not Reportable 03/16/17 04:05 Microcytosis Not Reportable 03/16/17 04:05 Macrocytosis Not Reportable 03/16/17 04:05 Spherocytes Not Reportable 03/16/17 04:05 Pappenheimer Bodies Not Reportable 03/16/17 04:05 Sickle Cells Not Reportable 03/16/17 04:05 Target Cells Not Reportable 03/16/17 04:05 Tear Drop Cells Not Reportable 03/16/17 04:05 Ovalocytes Not Reportable 03/16/17 04:05 Helmet Cells Not Reportable 03/16/17 04:05 [place] Bodies Not Reportable 03/16/17 04:05 [place] Rings Not Reportable 03/16/17 04:05 [place] Cells Not Reportable 03/16/17 04:05 Bite Cells Not Reportable 03/16/17 04:05 Crenated Cell Not Reportable 03/16/17 04:05 Elliptocytes Not Reportable 03/16/17 04:05 Acanthocytes (Spur) Not Reportable 03/16/17 04:05 Rouleaux Not Reportable 03/16/17 04:05 Hemoglobin C Crystals Not Reportable 03/16/17 04:05 Schistocytes Not Reportable 03/16/17 04:05 Malaria parasites Not Reportable 03/16/17 04:05 Nathan Bodies Not Reportable 03/16/17 04:05 Hem Pathologist Commnt No 03/16/17 04:05 Sodium 138 mmol/L (137-145) 03/18/17 02:40 Potassium 3.8 mmol/L (3.6-5.0) D 03/18/17 02:40 Chloride 100.3 mmol/L (98-107) 03/18/17 02:40 Carbon Dioxide 25 mmol/L (22-30) D 03/18/17 02:40 Anion Gap 17 mmol/L 03/18/17 02:40 BUN 10 mg/dL (9-20) 03/18/17 02:40 Creatinine 1.1 mg/dL (0.8-1.5) 03/18/17 02:40 Estimated GFR > 60 ml/min 03/18/17 02:40 BUN/Creatinine Ratio 9.09 % 03/18/17 02:40 Glucose 138 mg/dL (75-100) H 03/18/17 02:40 POC Glucose 109 (70-105) H 03/19/17 07:52 Hemoglobin A1c 5.1 % (4-6) 03/18/17 06:29 Calcium 8.2 mg/dL (8.4-10.2) L D 03/18/17 02:40 Iron 27 ug/dL (49-181) L 03/18/17 02:40 TIBC 287.00 mcg/dL (250-450) 03/18/17 02:40 % Saturation 9.41 % 03/18/17 02:40 Transferrin 205 mg/dl (180-329) 03/18/17 02:40 Total Bilirubin 0.2 mg/dL (0.1-1.2) 03/18/17 02:40 Direct Bilirubin < 0.2 mg/dL (0-0.2) 03/17/17 13:02 AST 23 units/L (5-40) 03/18/17 02:40 ALT 10 units/L (7-56) 03/18/17 02:40 Alkaline Phosphatase 166 units/L (35-129) H 03/18/17 02:40 Ammonia 53.0 umol/L (25-60) 03/18/17 06:29 Total Protein 7.1 g/dL (6.3-8.2) 03/18/17 02:40 Albumin 3.3 g/dL (3.9-5) L 03/18/17 02:40 Albumin/Globulin Ratio 0.9 % 03/18/17 02:40 Amylase 1712 units/L (27-131) H 03/18/17 02:40 Lipase 248 units/L (13-60) H 03/19/17 09:13 Vitamin B12 722.5 pg/mL (211-911) 03/18/17 02:40 RBC Folic Acid >1000 ng/mL (>280) 03/18/17 02:40 Urine Color Yellow (Yellow) 03/16/17 08:10 Urine Turbidity Clear (Clear) 03/16/17 08:10 Urine pH 5.0 (5.0-7.0) 03/16/17 08:10 Ur Specific [place] 1.015 (1.003-1.030) 03/16/17 08:10 Urine Protein <15 mg/dl mg/dL (Negative) 03/16/17 08:10 Urine Glucose (UA) Neg mg/dL (Negative) 03/16/17 08:10 Urine Ketones Tr mg/dL (Negative) 03/16/17 08:10 Urine Blood Neg (Negative) 03/16/17 08:10 Urine Nitrite Neg (Negative) 03/16/17 08:10 Urine Bilirubin Neg (Negative) 03/16/17 08:10 Urine Urobilinogen < 2.0 mg/dL (<2.0) 03/16/17 08:10 Ur Leukocyte Esterase Tr (Negative) 03/16/17 08:10 Urine WBC (Auto) 2.0 /HPF (0.0-6.0) 03/16/17 08:10 Urine RBC (Auto) < 1.0 /HPF (0.0-6.0) 03/16/17 08:10 Urine Bacteria (Auto) 1+ /HPF (Negative) 03/16/17 08:10 Urine Mucus Few /HPF 03/16/17 08:10 Urine Opiates Screen Presumptive negative 03/16/17 08:10 Urine Methadone Screen Presumptive negative 03/16/17 08:10 Ur Barbiturates Screen Presumptive negative 03/16/17 08:10 Ur Phencyclidine Scrn Presumptive negative 03/16/17 08:10 Ur Amphetamines Screen Presumptive negative 03/16/17 08:10 U Benzodiazepines Scrn Presumptive negative 03/16/17 08:10 Urine Cocaine Screen Presumptive negative 03/16/17 08:10 U Marijuana (THC) Screen Presumptive negative 03/16/17 08:10 Drugs of Abuse Note Disclamer 03/16/17 08:10 Plasma/Serum Alcohol < 0.01 gm% (0-0.07) 03/16/17 04:05
--- NOTE | 2017-03-21 21:37 | Progress Note ---
Subjective - Reason for Consult Reason for consult: psych consult - Chief Complaint Chief complaint: Mr. Black is a 52 year old male who presented to the ER with AMS and was later admitted to the medical facility for pancreatitis. Patient continues to improve while in the hospital. Today he denies any SI/HI/AH/VH. He denies any bugs in him. He agrees that he was delusional but doesn't feel that it's there any longer. He feels as though he's back to his normal self. Does have slight tremors but he states that those are his normal ones. Mental Status Exam - Vital signs Last Vital Signs Temp 99.2 F 03/21/17 20:15 Pulse 98 H 03/21/17 20:15 Resp 18 03/21/17 20:15 BP 139/72 03/21/17 20:15 Pulse Ox 100 03/21/17 20:15 - Exam Orientation: time, place, person Affect: normal Mood: appropriate Thought Process: Intact Perceptions: none Speech: normal rate and pattern Concentration: focused Motor activity: normal Level of consciousness: alert Memory: Intact Interaction: cooperative Assessment and Plan Impression: Mr. Black is a 52 year old male who presented to the ER with AMS and was later admitted to the medical facility for pancreatitis. Recommendation/Plan: Patient will benefit from outpt rehab once medically stable. From a psych standpoint patient has improved greatly and doesn't require any further medication psych management
[2017-03-21] MEDS: LOVENOX SUB-Q SCH (22:59)
[2017-03-22] MEDS: DILAUDID IV PRN ×3 (04:32→13:30)
[2017-03-22] MEDS: ZOFRAN IV PRN ×2 (04:32→08:43)
[2017-03-22 07:32] VITALS: BP 172/99
[2017-03-22] MEDS: PEPCID PO SCH (09:35)
[2017-03-22] MEDS: HABITROL TD SCH (09:35)
--- NOTE | 2017-03-22 11:18 | Event Note ---
Date: 03/22/17 Patient evaluated by Psych, [id number] rescinded. he is medically stable to discharge home.
== END 2017-03-22 21:10 | disposition home or self-care (01) | DRG 439 ==
LOC: ED 02:24 → 2B-SURG 03-17 14:45
PROVIDERS: ADMIT Internal Medicine; ATTEND Internal Medicine
DX: K85.20 Alcohol induced acute pancreatitis without necrosis or infection (principal); N17.9 Acute kidney failure, unspecified; E44.0 Moderate protein-calorie malnutrition; Z68.1 Body mass index [BMI] 19.9 or less, adult; F29 Unspecified psychosis not due to a substance or known physiological condition; F25.8 Other schizoaffective disorders; F10.20 Alcohol dependence, uncomplicated; D63.8 Anemia in other chronic diseases classified elsewhere; E87.6 Hypokalemia; D47.3 Essential (hemorrhagic) thrombocythemia
CPT/HCPCS: 36415; 70450; 74177; 80048; 80053; 80074; 80307; 80320; 81001; 82140; 82150; 82607; 82747; 82962; 83036; 83550; 83690; 85007; 85025; 96374; 96375; G0480; J1170; J1650; J2060; J2270; J2405; J3411; J7030; J7042; Q9967